=== PATIENT | male | born 1980 | race Caucasian/White ===

== ENCOUNTER 2022-03-05 21:33 | Emergency (ER) | payer OTHER ==
[2022-03-05] MEDS ORDERED: Acetaminophen/oxyCODONE 325-5 MG Tab PO ONE (23:46)
[2022-03-05] MEDS ORDERED: Ondansetron 4 MG Tab.DIS PO ONE (23:49)
== END 2022-03-06 00:12 | disposition home or self-care (01) ==
LOC: JD.ED 21:33
DX: S40.021A Contusion of right upper arm, initial encounter (principal); I25.2 Old myocardial infarction; X50.9XXA Other and unspecified overexertion or strenuous movements or postures, initial encounter
CPT/HCPCS: 99283; A9270

== ENCOUNTER 2022-06-18 00:09 | Emergency (ER) | payer MEDICAID, OTHER ==
[2022-06-18] MEDS ORDERED: Acetaminophen/oxyCODONE 325-5 MG Tab PO ONE (01:06)
== END 2022-06-18 01:15 | disposition home or self-care (01) ==
LOC: JD.ED 00:09
DX: M54.2 Cervicalgia (principal); Z72.0 Tobacco use
CPT/HCPCS: 99283; A9270

== ENCOUNTER 2022-07-02 11:20 | Emergency (ER) | payer MEDICAID ==
[2022-07-02] MEDS ORDERED: Ketorolac 60 MG/2 ML SDV IM ONE (11:39)
[2022-07-02] MEDS ORDERED: HYDROmorphone 1 MG/ML Syringe IM ONE (11:40)
== END 2022-07-02 12:19 | disposition home or self-care (01) ==
LOC: JD.ED 11:20
DX: M54.32 Sciatica, left side (principal); I25.2 Old myocardial infarction; Z95.1 Presence of aortocoronary bypass graft
CPT/HCPCS: 96372; 99283; J1170; J1885

== ENCOUNTER 2022-11-12 13:15 | Emergency (ER) | payer MEDICAID ==
[2022-11-12] MEDS ORDERED: Ketorolac 60 MG/2 ML SDV IM ONE (13:38)
== END 2022-11-12 14:28 | disposition home or self-care (01) ==
LOC: JD.ED 13:15
DX: M54.41 Lumbago with sciatica, right side (principal); M54.42 Lumbago with sciatica, left side; I25.2 Old myocardial infarction; Z95.1 Presence of aortocoronary bypass graft
CPT/HCPCS: 96372; 99283; J1885

== ENCOUNTER 2022-12-19 13:10 | Emergency (ER) | payer MEDICAID ==
[2022-12-19] MEDS ORDERED: Ketorolac 60 MG/2 ML SDV IM ONE (13:58)
== END 2022-12-19 14:45 | disposition home or self-care (01) ==
LOC: JD.ED 13:10
DX: M54.42 Lumbago with sciatica, left side (principal); M54.41 Lumbago with sciatica, right side; G89.29 Other chronic pain; F17.210 Nicotine dependence, cigarettes, uncomplicated; I25.2 Old myocardial infarction; I11.0 Hypertensive heart disease with heart failure; I50.9 Heart failure, unspecified; E78.00 Pure hypercholesterolemia, unspecified; J45.909 Unspecified asthma, uncomplicated; K21.9 Gastro-esophageal reflux disease without esophagitis; Z95.5 Presence of coronary angioplasty implant and graft; Z86.16 Personal history of COVID-19; Z79.899 Other long term (current) drug therapy; Z91.048 Other nonmedicinal substance allergy status
CPT/HCPCS: 96372; 99283; J1885

== ENCOUNTER 2023-03-23 09:05 | Emergency (ER) | payer MEDICAID ==
[2023-03-23] MEDS ORDERED: Ondansetron 4 MG Tab.DIS PO ONE (09:22)
[2023-03-23] MEDS ORDERED: HYDROmorphone 1 MG/ML Syringe IM ONE (09:23)
[2023-03-23] MEDS ORDERED: Ketorolac 60 MG/2 ML SDV IM ONE (09:23)
== END 2023-03-23 09:42 | disposition home or self-care (01) ==
LOC: JD.ED 09:05
DX: M51.27 Other intervertebral disc displacement, lumbosacral region (principal); I11.0 Hypertensive heart disease with heart failure; I50.9 Heart failure, unspecified; E78.00 Pure hypercholesterolemia, unspecified; I25.2 Old myocardial infarction; J45.909 Unspecified asthma, uncomplicated; K21.9 Gastro-esophageal reflux disease without esophagitis; Z86.16 Personal history of COVID-19; Z95.5 Presence of coronary angioplasty implant and graft; Z91.048 Other nonmedicinal substance allergy status; Z79.899 Other long term (current) drug therapy
CPT/HCPCS: 96372; 99283; A9270; J1170; J1885

== ENCOUNTER 2024-03-25 11:35 | Emergency (ER) | payer MEDICAID, OTHER ==
[2024-03-25] MEDS: Sodium Chloride 0.9% 1,000 ML IV ONE (12:29)
[2024-03-25] MEDS: Acetaminophen 325 MG Tab PO ONE (12:30)
[2024-03-25 12:46] LABS: BASOPHILS PERCENT AUTO 0.2 % (0.0-1.0); EOSINOPHILS ABSOLUTE AUTO 0.2 K/mm3 (0.0-0.4); EOSINOPHILS PERCENT AUTO 3.4 % (0.0-6.0); HEMOGLOBIN 17.4 gm/dl (14.0-18.0); IMMATURE GRAN ABSOLUTE AUTO 0.03 K/mm3 (0.00-0.05); IMMATURE GRAN PERCENT AUTO 0.5 % (0.0-0.4); LYMPHOCYTES PERCENT AUTO 16.9 % (24.0-44.0); MEAN CORPUSCULAR HEMOGLOBIN 30.6 pg (28.0-32.0); MEAN CORPUSCULAR HGB CONC 33.5 g/dl (32.0-36.0); MEAN CORPUSCULAR VOLUME 91.4 fl (83.0-99.0); MEAN PLATELET VOLUME 9.2 fl (9.4-12.4); MONOCYTES ABSOLUTE AUTO 0.7 K/mm3 (0.0-0.8); MONOCYTES PERCENT AUTO 11.6 % (0.0-8.0); NEUTROPHILS ABSOLUTE AUTO 4.1 K/mm3 (1.8-7.7); NEUTROPHILS PERCENT AUTO 67.4 % (41.0-71.0); PLATELET COUNT,PLT 181 K/mm3 (150-400); RED BLOOD CELL COUNT 5.69 M/mm3 (4.52-5.90); WHITE BLOOD CELL COUNT,WBC 6.11 K/mm3 (3.9-11.3)
[2024-03-25 13:14] LABS: LACTIC ACID 0.6 mmol/L (0.4-2.0)
[2024-03-25 13:17] LABS: ALBUMIN 3.5 g/dl (3.4-5.0); ANION GAP 14.9 (5-15); BILIRUBIN TOTAL 0.4 mg/dL (0.2-1.0); BUN/CREATININE RATIO 8.3 (14-18); CALCIUM 8.1 mg/dL (8.5-10.1); CREATININE 1.2 mg/dL (0.7-1.3); EST CRCL DRUG DOSING (CG) 86.93 mL/min; POTASSIUM,K 3.9 mEq/L (3.5-5.1)
[2024-03-25 13:28] LABS: INR 0.97; PROTHROMBIN TIME 10.3 SECONDS (9.7-12.0)
[2024-03-25 13:29] LABS: PTT,PARTIAL THROMBOPLSTIN TIME 30.5 SECONDS (21.7-31.4)
[2024-03-25] MEDS: Albuterol/Ipratropium 3.0-0.5 MG/3 ML Neb Soln NEB ONE (13:29)
== END 2024-03-25 13:23 | disposition left against medical advice (07) ==
LOC: JD.ED 11:35
DX: R06.02 Shortness of breath (principal); I11.0 Hypertensive heart disease with heart failure; I50.9 Heart failure, unspecified; I25.2 Old myocardial infarction; E78.00 Pure hypercholesterolemia, unspecified; K21.9 Gastro-esophageal reflux disease without esophagitis; Z86.16 Personal history of COVID-19; Z95.1 Presence of aortocoronary bypass graft; Z95.5 Presence of coronary angioplasty implant and graft; Z79.51 Long term (current) use of inhaled steroids; Z79.899 Other long term (current) drug therapy; Z91.09 Other allergy status, other than to drugs and biological substances
CPT/HCPCS: 36415; 71046; 80053; 83605; 85025; 85610; 85730; 87428; 87651; 96360; 99285; A9270; J7030

== ENCOUNTER 2024-05-28 05:17 | Emergency (ER) | payer OTHER ==
[2024-05-28 05:41] LABS: BASOPHILS ABSOLUTE AUTO 0.1 K/mm3 (0.0-0.2); BASOPHILS PERCENT AUTO 0.4 % (0.0-1.0); EOSINOPHILS ABSOLUTE AUTO 0.1 K/mm3 (0.0-0.4); EOSINOPHILS PERCENT AUTO 0.5 % (0.0-6.0); HEMATOCRIT 50.4 % (42.0-52.0); HEMOGLOBIN 16.8 gm/dl (14.0-18.0); IMMATURE GRAN ABSOLUTE AUTO 0.15 K/mm3 (0.00-0.05); IMMATURE GRAN PERCENT AUTO 1.1 % (0.0-0.4); LYMPHOCYTES ABSOLUTE AUTO 2.6 K/mm3 (1.0-4.8); LYMPHOCYTES PERCENT AUTO 19.9 % (24.0-44.0); MEAN CORPUSCULAR HEMOGLOBIN 30.7 pg (28.0-32.0); MEAN CORPUSCULAR HGB CONC 33.3 g/dl (32.0-36.0); MEAN CORPUSCULAR VOLUME 92.1 fl (83.0-99.0); MEAN PLATELET VOLUME 9.1 fl (9.4-12.4); MONOCYTES ABSOLUTE AUTO 1.1 K/mm3 (0.0-0.8); MONOCYTES PERCENT AUTO 8.3 % (0.0-8.0); NEUTROPHILS ABSOLUTE AUTO 9.2 K/mm3 (1.8-7.7); NEUTROPHILS PERCENT AUTO 69.8 % (41.0-71.0); PLATELET COUNT,PLT 341 K/mm3 (150-400); RED BLOOD CELL COUNT 5.47 M/mm3 (4.52-5.90); WHITE BLOOD CELL COUNT,WBC 13.21 K/mm3 (3.9-11.3)
[2024-05-28] MEDS: QUEtiapine 25 MG Tab ONE (05:43)
[2024-05-28 06:07] LABS: A/G RATIO 0.9 (1-2); ALBUMIN 3.2 g/dl (3.4-5.0); BILIRUBIN TOTAL 0.3 mg/dL (0.2-1.0); BUN/CREATININE RATIO 19.1 (14-18); CALCIUM 9.3 mg/dL (8.5-10.1); CREATININE 1.1 mg/dL (0.7-1.3); EST CRCL DRUG DOSING (CG) 92.1 mL/min; PROTEIN TOTAL,TP 6.6 g/dl (6.4-8.2)
[2024-05-28] MEDS: Aspirin 81 MG Tab.Chew PO ONE (06:16)
[2024-05-28] MEDS: Heparin Sodium/D5W 250 ML IV SCH (06:22)
[2024-05-28] MEDS: Heparin Sodium 5,000 Units/ML Vial IVPUSH ONE (06:24)
[2024-05-28 06:27] LABS: INR 0.97; PROTHROMBIN TIME 10.3 SECONDS (9.7-12.0)
[2024-05-28 06:28] LABS: PTT,PARTIAL THROMBOPLSTIN TIME 27.4 SECONDS (21.7-31.4)
[2024-05-28] MEDS: cefTRIAXone 1,000 MG in Sodium Chloride 0.9% 50 ML IV ONE (06:44)
[2024-05-28] MEDS: hydrOXYzine HCl 50 MG Tab PO SCH (06:44)
[2024-05-28 07:03] LABS: LACTIC ACID 2.3 mmol/L (0.4-2.0)
[2024-05-28] MEDS ORDERED: hydrOXYzine HCl 50 MG Tab PO SCH (21:00)
[2024-05-28] MEDS ORDERED: QUEtiapine 100 MG Tab PO SCH (21:00)
== END 2024-05-28 08:00 | disposition left against medical advice (07) ==
LOC: JD.ED 05:17
DX: J18.9 Pneumonia, unspecified organism (principal); G47.00 Insomnia, unspecified; I24.9 Acute ischemic heart disease, unspecified; I25.810 Atherosclerosis of coronary artery bypass graft(s) without angina pectoris; I25.2 Old myocardial infarction; I11.0 Hypertensive heart disease with heart failure; I50.9 Heart failure, unspecified; J45.909 Unspecified asthma, uncomplicated; K21.9 Gastro-esophageal reflux disease without esophagitis; Z86.16 Personal history of COVID-19; Z91.048 Other nonmedicinal substance allergy status; Z79.899 Other long term (current) drug therapy
CPT/HCPCS: 36415; 71045; 80053; 80307; 83605; 83735; 83880; 84484; 85025; 85610; 85730; 87040; 87428; 93005; 96365; 96367; 99285; A9270; J0696; J1644; J3490; 93010